=== PATIENT | female | born 1955 | race Caucasian/White ===

== ENCOUNTER → 2024-10-06 | Outpatient (CLI) | payer OTHER ==
--- NOTE | 2024-10-06 11:35 | HMCIMG ---
UPPER GI TRACT, WO KUB REASON: Diaphragmatic hernia without obstruction or gangrene COMPARISON: None TECHNIQUE: Air contrast upper GI was performed with fluoroscopic observation, fluoroscopy time 0.9 minutes. 11 short cine sequences were acquired. FINDINGS: There is normal esophageal peristalsis. Esophagus appears unremarkable with no evidence of mass, ulcer or obstructing lesion. There is normal appearance of the stomach. There are no focal masses or ulcers. Duodenal bulb and C-loop appear normal. There is no evidence of hiatal hernia. There was no reflux seen during the exam. IMPRESSION: 1. Normal air contrast upper GI.
== END | disposition home or self-care (01) ==
LOC: RAH 09:44
PROVIDERS: ATTEND Internal Medicine
DX: R12 Heartburn (principal)
CPT/HCPCS: 74240